=== PATIENT | female | born 1990 | race Caucasian/White ===

== ENCOUNTER 2020-11-15 08:03 | Emergency (ER) | payer OTHER ==
[2020-11-15 08:51] LABS: BASOPHIL 0.6 % (0-2); HCT 40.5 % (37.0-47.0); HGB 13.5 g/dl (12.5-16.0); MCH 30.6 pg (25.0-31.0); MCHC 33.3 g/dL (32.0-36.0); MCV 91.8 fL (78.0-100.0); MONOCYTE 6.3 % (0-12); MPV 11.7 fL (6.0-9.5); NEUTROPHIL 75.8 % (41-80); NRBC 0; PLT 221 K/uL (150-400); RBC 4.41 M/uL (4.20-5.40); RDW 12.5 % (11.5-14.0); WBC 14.3 K/uL (4.0-10.5)
[2020-11-15 08:54] LABS: BILIRUBIN NEGATIVE (NEGATIVE); BLOOD 2+ Ery/uL (NEGATIVE); CLARITY CLEAR (CLEAR); COLOR YELLOW (YELLOW); GLUCOSE (U) NORMAL (NORMAL); LEUKOCYTES 1+ Leu/uL (NEGATIVE); NITRITE NEGATIVE (NEGATIVE); PROTEIN NEGATIVE (NEGATIVE); SPECIFIC GRAVITY 1.025 (1.001-1.030); UROBILINOGEN 0.2 mg/dL (0.2-1.0)
[2020-11-15 09:01] LABS: BACTERIA 2+; URINARY WBC 20-50
[2020-11-15 09:09] LABS: ALBUMIN 3.4 g/dL (3.4-5.0); BILIRUBIN - TOTAL 0.2 mg/dL (0.2-1.0); BUN/CREAT RATIO (CALC) 14.5 RATIO; CREATININE 0.76 mg/dL (0.51-0.95); GLOBULIN (CALCULATION) 3.7 g/dL; POTASSIUM 3.8 mmol/L (3.5-5.1); TOTAL PROTEIN 7.1 g/dL (6.4-8.2)
[2020-11-15] MEDS ORDERED: DICYCLOMINE HCL20 MG PO (10:39)
[2020-11-15] MEDS ORDERED: BACTRIM DS TAB1 EACH PO (10:39)
== END 2020-11-15 10:51 | disposition home or self-care (01) ==
LOC: FER 08:03
PROVIDERS: Emergency Medicine
DX: N39.0 Urinary tract infection, site not specified (principal); J45.909 Unspecified asthma, uncomplicated; F17.210 Nicotine dependence, cigarettes, uncomplicated; Z88.0 Allergy status to penicillin; Z87.19 Personal history of other diseases of the digestive system
CPT/HCPCS: 36415; 74022; 80053; 81001; 82150; 83690; 85025; 87088; J2405; J7120